=== PATIENT | female | born 1950 | race Caucasian/White ===

== ENCOUNTER → 2019-09-19 | Outpatient (CLI) | payer MEDICARE, BC ==
--- NOTE | 2019-09-20 07:30 | RADIOLOGY REPORT (SQ) ---
EXAM DESCRIPTION: MRI CERVICAL SPINE WITHOUT COMPLETED DATE/TIME: 09/19/2019 6:59 pm REASON FOR STUDY: M47.22 OTHER SPONDYLOSIS WITH RADICULOPATHY, CERVICAL REGION M47.22 OTHER SPONDYL OSIS WITH RADICULOPATHY, CERVICAL REGION COMPARISON: None. TECHNIQUE: Sagittal and Axial imaging includes T1, T2, STIR and gradient echo sequences. LIMITATIONS: None. FINDINGS: ALIGNMENT: There is degenerative straightening and reversal of the normal cervical lordosi s with approximately 5 mm degenerative anterolisthesis of C3 on C4. There is approximately 3 mm ante rolisthesis of C4 on C5. VERTEBRAE: Intact. BONE MARROW: Normal. No marrow replacement or reactive changes. DISCS: Normal. No significant abnormal signal or loss of height. HARDWARE: None in the spine. CORD AND BASE OF BRAIN: There is cord deformity and central signal abnormality secondary to severe ce rvical stenosis at C3-C4. SOFT TISSUES: No soft tissue masses. C1-C2: No significant spinal stenosis. C2-C3: Moderate right asymmetric neural foraminal stenosis secondary to facet hypertrophy and uncover tebral osteophyte without significant central cervical stenosis. C3-C4: There is approximately 5 mm degenerative anterolisthesis of C3 on C4 with severe associated fa cet degenerative disease and moderate disc space height loss. There is severe central cervical steno sis at this level, with cord deformity and central cord signal abnormality, minimum AP diameter appro ximately 5 mm. There is moderate bilateral neural foraminal stenosis secondary to facet hypertrophy and anterolisthesis. C4-C5: There is ventral cord contact due to anterolisthesis and reversal of the normal cervical lordo sis at C4-C5 without significant cord deformity or signal abnormality. There is severe right asymmet serjio neural foraminal stenosis secondary to facet hypertrophy and anterolisthesis. C5-C6: There is partial bony incorporation of the disc space at C5-C6 with a small remnant broad-base d central posterior disc bulge, which contacts the cord without significant deformity or signal abnor mality. There is moderate bilateral neural foraminal stenosis secondary to facet hypertrophy and unc overtebral osteophytes. C6-C7: Small broad-based central posterior disc bulge without significant cord contact or cervical st enosis. No significant neural foraminal stenosis. C7-T1: No significant spinal stenosis or exit foraminal stenosis. UPPER THORACIC: Incompletely imaged. No significant spinal stenosis or exit foraminal stenosis. OTHER: No other significant finding. IMPRESSION: There is severe degenerative malalignment of the cervical spine, degenerative anterolist hesis of C3 on C4 and C4 on C5 with reversal of the normal cervical lordosis. There is severe centra l cervical stenosis at C3-C4 with cord deformity and signal abnormality secondary to anterolisthesis. Other findings, including ventral cord contact and bilateral neural foraminal stenosis as detailed above. TECHNICAL DOCUMENTATION: JOB ID: [id number] [employer]- All Rights Reserved Reading location - IP/workstation name: [email or web address]
== END ==
LOC: RAD 16:33
PROVIDERS: ATTEND Orthopaedic Surgery
DX: M47.22 Other spondylosis with radiculopathy, cervical region (principal)
CPT/HCPCS: 72141